=== PATIENT | male | born 1975 | race Caucasian/White ===

== ENCOUNTER 2020-09-27 19:45 | Emergency (ER) | payer SELFPAY ==
[~2020-09-27] VITALS: Ht 177.8 cm; Wt 120.0 kg
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
[2020-09-27 20:33] LABS: BASOPHILS % (AUTO) 0 % (0-1); EOSINOPHILS % (AUTO) 1 % (1-7); LYMPHOCYTES % (AUTO) 19 % (22-44); MEAN CORPUSCULAR HEMOGLOBIN 31.3 pg (27.5-34.5); MEAN PLATELET VOLUME 9.3 fL (7.4-10.4); MONOCYTES % (AUTO) 6 % (2-9); NEUTROPHILS % (AUTO) 74 % (42-75); PLATELET COUNT 163 x10^3/uL (130-400); RED BLOOD COUNT 4.14 x10^6/uL (4.38-5.82); RED CELL DISTRIBUTION WIDTH 13.4 % (9.4-14.8)
[2020-09-27 20:38] LABS: MD NO
[2020-09-27 20:45] LABS: ALANINE AMINOTRANSFERASE 55 U/L (12-78); ALBUMIN 3.6 g/dL (3.4-5.0); ANION GAP 7 mmol/L (5-15); CALCIUM 8.3 mg/dL (8.5-10.1); CHLORIDE 105 mmol/L (98-107); CREATININE 1.05 mg/dL (0.7-1.3)
[2020-09-27 20:48] LABS: ALKALINE PHOSPHATASE 78 U/L (45-117); BILIRUBIN,TOTAL 0.7 mg/dL (0.2-1.0); TOTAL PROTEIN 6.7 g/dL (6.4-8.2)
[2020-09-27 21:16] VITALS: BP 133/65
[2020-09-27 21:35] LABS: HCT (SEDRATE) 37.1 % (39.2-51.8)
== END 2020-09-27 21:52 | disposition home or self-care (01) ==
LOC: ED 21:05
DX: R50.9 Fever, unspecified (principal)
CPT/HCPCS: 36415; 71045; 80053; 83605; 84145; 85025; 85651; 87040; 99284